=== PATIENT | female | born 1995 | race Caucasian/White ===

== ENCOUNTER → 2021-01-27 | Outpatient (REF) | payer OTHER ==
[2021-01-27 13:06] LABS: HEPATITIS B SURFACE ANTIBODY POSITIVE (POSITIVE)
[2021-01-28 06:08] LABS: MUMPS VIRUS IgG ANTIBODY 34.5 AU/mL (Immune >10.9); RUBEOLA IgG ANTIBODY 53.3 AU/mL (Immune >16.4)
== END ==
LOC: M LAB REF 11:45
PROVIDERS: ATTEND Physician Assistant Medical
DX: Z02.0 Encounter for examination for admission to educational institution (principal)